=== PATIENT | female | born 1975 | race Caucasian/White ===

== ENCOUNTER 2017-08-22 08:33 | Day surgery (SDC) | payer OTHER ==
[~2017-08-22] VITALS: Ht 146.7 cm; Wt 62.1 kg
[~2017-08-22 08:33] MED LIST: ADVIL,NUPRIN,M200 MG PO; B COMPLETE1 EACH PO; CALCIUM 500 MG1 EACH PO; CALCIUM CITRAT200 MG PO; DOXYCYCLINE HY100 MG PO; FISH OIL 1,0001 EAC7 PO; IRON325 M1 PO; MULTIVITAMIN1 EAC2 PO; NAPROSYN375 MG PO; NAPROXEN375 MG PO; NEXIUM20 MG PO; PREVACID15 MG PO; PRILOSEC20 MG PO; TYLENOL EXTRA500 MG PO; ZOFRAN4 MG PO
[2017-08-22 09:27] VITALS: BP 130/83
[2017-08-22] MEDS ORDERED: IBUPROFEN800 MG PO (09:44)
[2017-08-22] MEDS ORDERED: ZOFRAN4 MG PO (09:44)
[2017-08-22] MEDS ORDERED: ENDOCET 5-3251 EACH PO (09:44)
[2017-08-22 11:54] VITALS: BP 111/73
[2017-08-22 13:00] VITALS: BP 120/70
[2017-08-22 14:01] VITALS: BP 108/67
== END 2017-08-22 14:20 | disposition home or self-care (01) ==
LOC: SDC 08:33
PROC: 0UT74ZZ Resection of Bilateral Fallopian Tubes, Percutaneous Endoscopic Approach (ICD-10-PCS; principal; 2017-08-22)
DX: Z30.2 Encounter for sterilization (principal); N94.6 Dysmenorrhea, unspecified; K21.9 Gastro-esophageal reflux disease without esophagitis
CPT/HCPCS: 88302; J0330; J1100; J1170; J2250; J2405; J3010